=== PATIENT | female | born 1990 | race Caucasian/White ===

== ENCOUNTER 2016-08-16 16:58 | Emergency (ER) | payer OTHER ==
[2016-08-16 17:13] VITALS: BP 121/62
--- NOTE | 2016-08-16 17:38 | ED Physician Documentation ---
PD HPI LOWER EXT INJURY - Stated complaint Stated Complaint: R FOOT INJ - Chief complaint Chief Complaint: Ext Problem - History obtained from History obtained from: Patient - History of Present Illness PD HPI LOW EXT INJURY LOCATION: Right, Foot Type of injury: Twist Where injury occurred: Home Timing - onset: Last night Timing - duration: Hours Timing - details: Abrupt onset, Still present Improved by: Rest, Immobilization Worsened by: Moving, Palpating Associated symptoms: No: Weakness, Numbness, Tingling, Swelling Contributing factors: No: Anticoagulated Similar symptoms before: Has not had sx before Recently seen: Not recently seen - Additional information Additional information: 25 y/o female was carrying her baby walking down the steps when she twisted her foot and contused the dorsum of the distal foot. She has pain with weight bearing. Review of Systems Constitutional: denies: Fever Eyes: denies: Decreased vision Respiratory: denies: Cough GI: denies: Vomiting Musculoskeletal: reports: Extremity pain, Pain with weight bearing. denies: Back pain, Joint pain, Extremity swelling, Joint swelling Neurologic: denies: Generalized weakness, Focal weakness, Numbness PD PAST MEDICAL HISTORY - Past Medical History Past Medical History: Yes Neuro: Headache/migraine [employer]: Ovarian cysts - Past Surgical History Past Surgical History: No - Present Medications Home Medications: Ambulatory Orders Medication Instructions Recorded Confirmed Ondansetron Odt [Zofran] 4 mg TL Q6H PRN #10 tablet 01/01/14 08/30/14 Azithromycin [Zithromax] 08/30/14 08/30/14 Ondansetron Odt [Zofran] 4 mg TL Q6H PRN #10 tablet 08/30/14 Oxycodone HCl/Acetaminophen 1 - 2 each PO Q6H PRN #15 tablet 08/30/14 [Percocet 5-325 mg Tablet] Azithromycin [Zithromax] 250 mg PO DAILY #4 tablet 04/14/15 HYDROcod/ACETAM 5/325 [Dawn 5/325] 1 - 2 ea PO Q6H PRN #10 tablet 04/14/15 Metoclopramide HCl [Reglan] 10 mg PO QID PRN #15 tablet 04/14/15 Mometasone Furoate [Nasonex] 1 spray NS BID #1 spray.pump 04/14/15 - Allergies Allergies/Adverse Reactions: Allergies Allergy/AdvReac Type Severity Reaction Status Date / Time Penicillins Allergy Unknown Verified 01/01/14 18:06 - Social History Does the pt smoke?: No Smoking Status: Never smoker Does the pt drink ETOH?: Yes Does the pt have substance abuse?: No PD ED PE NORMAL - Vitals Vital signs reviewed: Yes (normal ) - General General: Alert and oriented X 3, No acute distress, Well developed/nourished - HEENT HEENT: Atraumatic, PERRL - Respiratory Respiratory: No respiratory distress - Derm Derm: Normal color, Warm and dry, No rash - Extremities Extremities: No deformity, No edema, Other (There is some tenderness to the distal 3rd MT on the right. There is no swelling or ecchymosis. Distal N/V is intact. ) - Neuro Neuro: No motor deficit, No sensory deficit - Psych Psych: Normal mood, Normal affect Results - Vitals Vitals: Vital Signs - 24 hr 08/16/16 17:11 Temperature 36.6 C Heart Rate 67 Respiratory 16 Rate Blood Pressure 121/62 O2 Saturation 98 Oxygen O2 Source Room air - Rads (name of study) right foot Radiology: Prelim report reviewed (Impression: Normal foot radiography.), EMP read indepedently, See rad report PD MEDICAL DECISION MAKING - ED course Complexity details: reviewed results, re-evaluated patient, considered differential, d/w patient ED course: 25 y/o female with a contusion to the dorsum of the right foot is able to walk. Departure - Departure Disposition: 01 Home, Self Care Clinical Impression: Contusion of foot, right Qualifiers: Encounter type: initial encounter Qualified Code(s): S90.31XA - Contusion of right foot, initial encounter Condition: Stable Instructions: ED Contusion Foot Follow-Up: RIGO MONTIEL [Primary Care Provider] -
--- NOTE | 2016-08-16 17:43 | XRAY Preliminary Report ---
Exam: XR Foot 3 View RT IMPRESSION: Normal foot radiography. [facility] SITE ID: [id number]
--- NOTE | 2016-08-16 17:45 | XRAY Report ---
EXAM: RIGHT FOOT RADIOGRAPHY EXAM DATE: 08/16/2016 05:37 PM. CLINICAL HISTORY: Twisted foot with pain to distal 3rd MT. COMPARISON: None. TECHNIQUE: 3 views. FINDINGS: Bones: Normal. No fractures or bone lesions. Joints: Normal. No subluxations. Soft Tissues: Normal. No soft tissue swelling. IMPRESSION: Normal foot radiography. [facility] Referring Provider Line: [phone] SITE ID: [id number]
== END 2016-08-16 18:25 | disposition home or self-care (01) ==
LOC: ED 16:58
DX: S90.31XA Contusion of right foot, initial encounter (principal); X50.1XXA Overexertion from prolonged static or awkward postures, initial encounter; Y93.89 Activity, other specified; Y92.009 Unspecified place in unspecified non-institutional (private) residence as the place of occurrence of the external cause; Y99.8 Other external cause status
CPT/HCPCS: 99282; 99283